=== PATIENT | male | born 1960 | race Caucasian/White ===

== ENCOUNTER 2018-07-13 13:05 | Outpatient (RCR) | payer OTHER, SELFPAY ==
--- NOTE | 2018-07-13 13:30 | IE_ITS ---
Date: July 13, 2019 Referring: Hoda Austin MD [facility] [place] Diagnosis: S/p Fx L humeral shaft P.T. Diagnosis: SUBJECTIVE: History of Present Illness: Ivan is a 58 year old male referred for an initial evaluation today secondary to a humeral shaft fracture on the L. This occurred on 05/16/18. He reports he was at work, went to jump over a railing to save a few seconds, started to fall, caught himself with his L UE causing a hyperextension injury to the elbow, wrist and sustained a spiral fracture to the humeral shaft. He has been followed by orthopedics. They do not feel that surgery is going to be needed. He has no nerve damage, however is having a lot of soft tissue related pain with limitation in shoulder mobility and elbow extension primarily. He was in a sling and abduction pillow for close to 6 weeks. He removed this last week, he was initially sleeping in his reclining chair, currently has gone back to his bed. He declines any tingling or numbness, declines headaches. Pain Ratin/10, a dull ache. At worse a 5-7/10 and this is subject to activity. He is slowly continuing to increase use of his UE for he is L hand dominant. He has not been icing currently. Pain Location: Into the elbow and anterior R shoulder, dull ache into the fractured humeral shaft. Prior Level of Function: Does report previous injury to the elbow, limiting him with some end range supination and he had some hyper extension due to previous fracture as a child. He has also had previous irritation of tennis elbow requiring extensive PT . He also reports of a wrist fracture that he sustained as a child that was improperly set. This does also limit him some. Current Level of Function: Returned to work 10 days post injury. He was on desk duty, light duty. 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 He is primarily working 6 hour days at this time. Lives at home with his . Previous Treatment: Orthopedic management. Social: Comorbidities: Hx of fracture C7, hx of L lateral epicondylitis. Falls in the last year: Yes - How many? __1 sustaining the injury__ - (if over 2, balance SM needs to be completed) Reported hospitalizations in the last year - No Medications: Ibuprofen, Flexeril prn. Quality of Life: Excellent Standardized Measures: DASH score: __68%__ OBJECTIVE: Posture: Patient has rounded shoulder, forward head posturing. Cervical protraction with good self correction with cues, (-) scapular winging, however does have mild thoracic kyphosis. Palpation: Tender to palpation throughout the anterior/posterior cuff of L shoulder, sensitivity into the bicep and tricep as well as into the forearm flexor/extensor compartment on the L. Trigger points into the upper trap, levator scap. ROM: Active cervical motion flexion/extension WNL, sidebending limited to 20- 25 degrees bilaterally, rotation WNL. Patient's active shoulder flexion R 170, L 80 with substitution, R abduction 170 , L 55 with substitution, IR R T9 L to side pocket, ER R 80, L 15. Elbow flexion R 145, L 130, extension R 0, L lacking 35 degrees from terminal extension. R wrist flexion 70 degrees, L 60 degrees, extension R 70, L 65. Passive L shoulder flexion 80 degrees, abduction 70 degrees, IR chest wall, ER 20 degrees. Flexion of the elbow to 140 lacking 30 degrees of terminal extension with the elbow in supine position. Strength: Was not assessed. Neuro: Intact to light touch declining paresthesias. Treatment: Consisted of evaluation followed by PROM to the L shoulder and elbow , soft tissue mobilization to the anterior/posterior cuff, cross friction to the greater tuberosity, trigger point work, upper trap, levator scapula, gentle ROM and mobilization the shoulder and elbow via P/AA mobility within painfree allowance, ending with cryotherapy post session for 10 mins to shoulder and elbow. IE: [id number] Direct treatment time: 55 MINS Total treatment time: 65 MINS ASSESSMENT: Patient is a 58-year-old male, referred for PT services with the diagnosis of L humeral shaft fracture. Patient presents with clinical signs and symptoms consistent with this diagnosis, as demonstrated by the following impairment level findings: Soft tissue dysfunction, impaired joint mobility, motor function, muscle performance and ROM associated with localized inflammation of shoulder and elbow. Impairments are contributing to the following functional limitations: Use of L UE, dominant arm, lifting, ROM, work. DASH 68% Patient is assessed as: Low 41892 complexity, based on the following: History: C7 fx, humeral shaft fracture See comorbidities and social history. Examination: See above for functional limitations and impairments. Presentation: Stable Decision-Making: Low complexity 68 % Disability based on clinical judgement and DASH Patient requires skilled PT intervention to remediate the above functional limitations to return to: __X__ Premorbid level of function __X__ Return to full functional mobility __X__ Return to work demands Prognosis: Good STG: __6__ weeks. 1: Demonstrate improved P/AROM of the L shoulder and elbow by 10-15 degrees all planes. 2: Reduce perceived disability rating by 50% or greater. 3: Improve L UE strength to 4/5 or greater. LTG: __10__ weeks. 1: Demonstrate WFL AROM of the left shoulder and elbow 2: Return to full painfree functional mobility. 3: Independent with strong self maintenance program. PLAN: Patient to be seen 2 x per week, for 10 weeks, adjusting frequency of visits per patient symptoms and response to treatment. Treatment to include: Manual therapy - 50195: P/AA mobilization avoiding any humeral shaft manipulation to allow for continued healing of fracture. Modalities will be utilized as needed for pain and edema reduction Therapeutic exercise - [id number] per MD order and within patient allowance returning to previous level of function. Thank you for this referral. Please do not hesitate to contact me with any questions or concerns regarding this patient's plan of care.
== END 2018-07-15 23:59 | disposition home or self-care (01) ==
LOC: PT 13:05
PROVIDERS: PCP Surgery Vascular Surgery; Referring Provider Orthopaedic Surgery; Visit Provider Orthopaedic Surgery
DX: S42.302D Unspecified fracture of shaft of humerus, left arm, subsequent encounter for fracture with routine healing (principal)
CPT/HCPCS: 97161

== ENCOUNTER 2019-06-27 07:38 | Outpatient (CLI) | payer OTHER, SELFPAY ==
[2019-06-27 08:37] LABS: Hemoglobin A1C 6.2 % (4.5-6.2)
[2019-06-27 09:37] LABS: ALT 31 U/L (12-78); AST 18 U/L (15-37); Albumin 3.8 g/dL (3.4-5.0); Alkaline Phosphatase 66 U/L (46-116); Anion Gap 8.6 mmol/L (3-11); BUN 15 mg/dL (7-18); Bilirubin, Total 0.5 mg/dL (0.2-1.0); CO2 24.4 mmol/L (21.0-32.0); CREATININE 1.06 mg/dL (0.70-1.30); Calcium 8.5 mg/dL (8.5-10.1); Calculated LDL 167 mg/dL; Chloride 105 mmol/L (98-107); Cholesterol 216 mg/dL (50-200); Glucose 99 mg/dL (70-100); HDL Cholesterol 40 mg/dL (40-60); Potassium 4.2 mmol/L (3.5-5.1); Sodium 138 mmol/L (136-145); Triglyceride 46 mg/dL (30-150)
== END 2019-06-27 07:58 ==
PROVIDERS: PCP Family Medicine; Visit Provider Family Medicine
DX: E78.5 Hyperlipidemia, unspecified (principal); K76.0 Fatty (change of) liver, not elsewhere classified
CPT/HCPCS: 36415; 80053; 80061; 83721; 83036

== ENCOUNTER 2019-09-07 00:56 | Outpatient (CLI) | payer OTHER, SELFPAY ==
--- NOTE | 2019-09-07 08:18 | DI.US_ITS ---
EXAM: US ABDOMEN CLINICAL HISTORY: f/u fatty liver,k76.0 TECHNIQUE: Ultrasound performed using standard protocol. COMPARISON: No exams were available for comparison FINDINGS: The aorta and vena cava are unremarkable. An echogenic liver has a maximal length of 15.3 cm and wou ld be consistent with fatty infiltration. Hepatopetal flow is noted in the portal vein. There is no Santos's sign. The gallbladder is intact. There are no gallstones or ductal dilatation. There is onl y limited visualization of the pancreas. No gross abnormality is identified. There are some calcific ations in the spleen likely representing old healed granulomata. The right kidney is 11.2 cm in jose th, the left kidney 11.9 cm. There is no evidence of free fluid in the abdomen. IMPRESSION: Findings consistent with a fatty liver, the examination is otherwise unremarkable.
== END 2019-09-07 01:16 ==
PROVIDERS: PCP Family Medicine; Visit Provider Family Medicine
DX: K76.0 Fatty (change of) liver, not elsewhere classified (principal)
CPT/HCPCS: 76700

== ENCOUNTER 2019-10-16 15:00 | Outpatient (CLI) | payer OTHER, SELFPAY ==
--- NOTE | 2019-10-16 15:00 | DI.RAD_ITS ---
EXAM: XR CHEST 2V PA AND LATERAL CLINICAL HISTORY: Cough, diffuse rhonchi on exam, bronchitis, J40. TECHNIQUE: 2D digital imaging was performed. COMPARISON: No exams were available for comparison FINDINGS: LUNGS: Clear. No pleural abnormality seen. HEART: Normal. MEDIASTINUM: Normal. OTHER FINDINGS:Normal. IMPRESSION: No acute pulmonary findings.
== END 2019-10-16 15:20 ==
PROVIDERS: PCP Family Medicine; Visit Provider Family Medicine
DX: R05 Cough (principal); J40 Bronchitis, not specified as acute or chronic; J98.8 Other specified respiratory disorders
CPT/HCPCS: 71046

== ENCOUNTER 2025-01-29 02:00 | Outpatient (CLI) | payer OTHER, SELFPAY ==
[2025-01-29 08:31] LABS: Hemoglobin A1C 6.3 % (<5.7)
[2025-01-29 09:09] LABS: Anion Gap 10.1 mmol/L (3-11); BUN 15 mg/dL (7-18); CO2 26.9 mmol/L (21.0-32.0); CREATININE 1.2 mg/dL (0.70-1.30); Calcium 9.3 mg/dL (8.5-10.1); Calculated LDL 142 mg/dL (<100); Chloride 106 mmol/L (98-107); Cholesterol 228 mg/dL (<200); Estimated GFR 67.53 (mL/min/1.73m2); Glucose 105 mg/dL (74-106); HDL Cholesterol 59 mg/dL (>or=40); Potassium 4.4 mmol/L (3.5-5.1); Sodium 143 mmol/L (136-145); Triglyceride 138 mg/dL (<150)
== END 2025-01-29 02:01 | disposition home or self-care (01) ==
PROVIDERS: PCP Family Medicine; Visit Provider Emergency Medicine
DX: R73.01 Impaired fasting glucose (principal); E78.5 Hyperlipidemia, unspecified; I10 Essential (primary) hypertension; E11.9 Type 2 diabetes mellitus without complications
CPT/HCPCS: 36415; 80048; 80061; 83036

== ENCOUNTER 2025-02-05 16:30 | Outpatient (REF) | payer OTHER, SELFPAY | END 2025-02-05 16:31 | disposition home or self-care (01) | LOC: LBN 16:30 | PROVIDERS: PCP Family Medicine; Visit Provider Family Medicine | DX: J02.9 Acute pharyngitis, unspecified (principal); K11.7 Disturbances of salivary secretion | CPT/HCPCS: 87077; 87070 ==

== ENCOUNTER 2025-08-27 03:23 | Outpatient (CLI) | payer MEDICARE, OTHER, SELFPAY ==
[2025-08-27 08:30] LABS: Anion Gap 10.1 mmol/L (3-11); BUN 14 mg/dL (7-18); CO2 24.9 mmol/L (21.0-32.0); Calcium 8.8 mg/dL (8.5-10.1); Calculated LDL 141 mg/dL (<100); Chloride 105 mmol/L (98-107); Cholesterol 215 mg/dL (<200); Estimated GFR 74.50 (mL/min/1.73m2); Glucose 111 mg/dL (74-106); HDL Cholesterol 49 mg/dL (>or=40); Potassium 4.2 mmol/L (3.5-5.1); Sodium 140 mmol/L (136-145); Triglyceride 127 mg/dL (<150)
== END 2025-08-27 03:24 | disposition home or self-care (01) ==
LOC: LBO 03:23
PROVIDERS: PCP Family Medicine; Visit Provider Family Medicine
DX: R73.01 Impaired fasting glucose (principal); E78.5 Hyperlipidemia, unspecified; I10 Essential (primary) hypertension
CPT/HCPCS: 36415; 80048; 80061